=== PATIENT | female | born 1985 | race Caucasian/White ===

== ENCOUNTER 2019-05-21 11:08 | Emergency (ER) | payer OTHER ==
[~2019-05-21] VITALS: Ht 154.9 cm; Wt 91.6 kg
--- NOTE | 2019-05-21 11:14 | NUR ---
PATIENT AMBULATED TO BED 4
[2019-05-21 11:16] VITALS: BP 139/89
--- NOTE | 2019-05-21 11:20 | NUR ---
PT C/O CONSTANT HEAVING VAGINAL BLEEDING W/ INTERMITTENT CRAMPING PELVIC PAIN AND FATIGUE FOR 2 MONTHS. CHANGES PADS 6-7 DAILY. PT REPORTS NOTICED OF HAVING RIGHT OVARIAN CYST 2X2 IN DECEMBER, REPORTS FAMILY HX OF OVARIAN CYST W/O HEAVY VAGINAL BLEEDING. DENIES VAGINAL ITCHY OR ABNORMAL VAGINAL DISCHARGE. SEEN RADIO PERFORMER IN FEBRUARY AND RECEIVED TREATMENT W/O ANY RELIEF. PT TOOK MOTRIN BUT NO RELIEF OF THE PAIN. VSS; PATIENT POSITIONED FOR COMFORT; HOB ELEVATED; BEDRAILS UP X1; BED DOWN. ER MD MADE AWARE OF PT STATUS.
[2019-05-21 12:49] LABS: BASOPHILS % (AUTO) 0.3 % (0.0-2.0); EOSINOPHILS # (AUTO) 0.4 K/uL (0-0.4); EOSINOPHILS % (AUTO) 4.4 % (0.0-4.0); HEMATOCRIT 38.8 % (36-48); MEAN CORPUSCULAR HEMOGLOBIN 30 pg (27-31); MEAN CORPUSCULAR HGB CONC 33 g/dL (33-37); MEAN CORPUSCULAR VOLUME 88.9 fL (80-94); MONOCYTES # (AUTO) 0.6 K/uL (0.8-1.0); MONOCYTES % (AUTO) 7.9 % (1.7-9.3); NEUTROPHILS # (AUTO) 5.2 K/uL (1.8-7.7); NEUTROPHILS % (AUTO) 63.4 % (42.2-75.2); PLATELET COUNT (AUTO) 291 K/uL (140-450); RED BLOOD CELL COUNT(AUTO) 4.36 MIL/uL (4.20-5.40); RED CELL DISTRIBUTION WIDTH 13.8 % (11.6-13.7); WHITE BLOOD COUNT (AUTO) 8.2 K/uL (4.8-10.8)
[2019-05-21 15:21] VITALS: BP 134/81
--- NOTE | 2019-05-21 15:21 | NUR ---
Patient discharged with v/s stable. Written and verbal after care instructions given and explained. Patient verbalized understanding. Ambulatory with steady gait. All questions addressed prior to discharge. Advised to follow up with PMD.
== END 2019-05-21 15:21 | disposition home or self-care (01) ==
LOC: MED 11:08
DX: N93.8 Other specified abnormal uterine and vaginal bleeding (principal); Z90.49 Acquired absence of other specified parts of digestive tract; Z87.42 Personal history of other diseases of the female genital tract
CPT/HCPCS: 36415; 76856; 81002; 81025; 83540; 85025; 99284; Q0092